=== PATIENT | female | born 1940 | race Caucasian/White ===

== ENCOUNTER 2017-11-29 10:04 | Day surgery (SDC) | payer MEDICARE, OTHER ==
[2017-11-24 10:56] LABS: BASOPHILS # (AUTO) 0.1 X10'3 (0-0.2); BASOPHILS % (AUTO) 0.8 % (0-1); EOSINOPHILS # (AUTO) 0.7 X10'3 (0-0.9); EOSINOPHILS % (AUTO) 7.5 % (0-6); HEMATOCRIT 40.2 % (35.0-45.0); HEMOGLOBIN 13.4 g/dl (12.0-16.0); LYMPHOCYTES # (AUTO) 1.9 X10'3 (1.1-4.8); LYMPHOCYTES % (AUTO) 20.5 % (21-51); MEAN CORPUSCULAR HEMOGLOBIN 32.2 PG (27.0-31.0); MEAN CORPUSCULAR HGB CONC 33.4 % (33.0-36.5); MEAN CORPUSCULAR VOLUME 96.6 FL (78-98); MEAN PLATELET VOLUME 9.1 FL (7.4-10.4); MONOCYTES # (AUTO) 0.7 X10'3 (0-0.9); MONOCYTES % (AUTO) 7.7 % (2-12); NEUTROPHILS # (AUTO) 5.9 X10'3 (1.8-7.7); NEUTROPHILS % (AUTO) 63.5 % (42-75); PLATELET COUNT 368 X10'3 (140-440); RED BLOOD COUNT 4.16 X10'6 (4.20-5.60); RED CELL DISTRIBUTION WIDTH 13.8 % (11.5-14.5); WHITE BLOOD COUNT 9.3 X10'3 (4.5-11.0)
[2017-11-24 11:06] LABS: ANION GAP 12 (8-16); BLOOD UREA NITROGEN 24 MG/DL (7-18); BUN/CREATININE RATIO 21.8 (6.6-38.0); CALCIUM 9.4 MG/DL (8.5-10.1); CHLORIDE 102 MMOL/L (99-107); GLUCOSE 92 MG/DL (70-104); POTASSIUM 3.5 MMOL/L (3.5-5.1); SODIUM 143 MMOL/L (135-145); TOTAL CARBON DIOXIDE 28.8 MMOL/L (24-32); eGFR 48 ML/MIN
[2017-11-24 11:10] LABS: INR 1.1 INR; PARTIAL THROMBOPLASTIN TIME 29 SECONDS (22-32)
[~2017-11-29] VITALS: Ht 157.5 cm; Wt 81.1 kg
[2017-11-29] VITALS (11 sets, daily range): BP systolic 95–125; BP diastolic 53–78
[2017-11-29] MEDS ORDERED: VITA1CAP PO (11:10)
[2017-11-29] MEDS ORDERED: UBID100C16 PO (11:10)
[2017-11-29] MEDS ORDERED: NIA500ERT PO (11:10)
[2017-11-29] MEDS ORDERED: DILT120T3 PO (11:10)
[2017-11-29] MEDS ORDERED: GEMF600T4 PO (11:10)
[2017-11-29] MEDS ORDERED: DILT120C19 PO (11:10)
[2017-11-29] MEDS ORDERED: FURO-150 PO (11:10)
[2017-11-29] MEDS ORDERED: CRAN300T PO (11:10)
[2017-11-29] MEDS ORDERED: LOSA25TA96 PO (11:10)
[2017-11-29] MEDS ORDERED: MULT1TAB74 PO (11:10)
[2017-11-29] MEDS ORDERED: OMEG1CAP2 PO (11:10)
[2017-11-29] MEDS ORDERED: GLUC15006 PO (11:10)
[2017-11-29] MEDS ORDERED: APIX5TAB3 PO (11:10)
[2017-11-29] MEDS ORDERED: MELA3TAB PO (11:10)
[2017-11-29] MEDS ORDERED: CHOL10002 PO (11:10)
[2017-11-29] MEDS ORDERED: METF-516 PO (11:10)
[2017-11-29] MEDS ORDERED: AMIO200T40 PO (11:10)
[2017-11-29] MEDS ORDERED: CINN1CAP PO (11:10)
[2017-11-29] MEDS ORDERED: GLIP5TAB13 PO (11:10)
[2017-11-29] MEDS ORDERED: MIDAZolam 5mg/ml 2ml vial IV ONE (11:20)
[2017-11-29] MEDS ORDERED: normal saline 1000ml 1,000 ML IV SCH (11:20)
[2017-11-29] MEDS ORDERED: fentaNYL/PF 50MCG/1 ML 2ML syringe IV ONE (11:20)
== END 2017-11-29 14:45 | disposition home or self-care (01) ==
LOC: SSTAY O 10:04
PROVIDERS: ATTEND Internal Medicine Interventional Cardiology
DX: I48.91 Unspecified atrial fibrillation (principal); E11.9 Type 2 diabetes mellitus without complications; I10 Essential (primary) hypertension; I45.81 Long QT syndrome; E78.5 Hyperlipidemia, unspecified; J45.998 Other asthma; Z79.01 Long term (current) use of anticoagulants; Z90.89 Acquired absence of other organs; Z90.710 Acquired absence of both cervix and uterus; Z79.84 Long term (current) use of oral hypoglycemic drugs; Z98.890 Other specified postprocedural states; Z79.899 Other long term (current) drug therapy; Z82.49 Family history of ischemic heart disease and other diseases of the circulatory system
CPT/HCPCS: 36415; 80048; 85025; 85610; 85730; 92960; 93005; J2250; J3010; J7030

== ENCOUNTER 2019-09-20 08:07 | Outpatient (CLI) | payer MEDICARE, OTHER ==
[~2019-09-20 08:07] MED LIST: AMIO200T61 PO; APIX5TAB3 PO; CHOL10002 PO; CINN1CAP PO; CRAN300T PO; DILT120C19 PO; DILT120T3 PO; FURO-150 PO; GEMF600T89 PO; GLIP5TAB13 PO; GLUC15006 PO; LOSA25TA96 PO; MELA3TAB39 PO; METF-516 PO; MULT-620 PO; NIA500ERT PO; OMEG1CAP2 PO; UBID100C16 PO; VITA1CAP PO
== END 2019-09-20 23:59 | disposition home or self-care (01) ==
LOC: VAS 08:07
PROVIDERS: ATTEND Nurse Practitioner Family
DX: I70.0 Atherosclerosis of aorta (principal); I70.8 Atherosclerosis of other arteries
CPT/HCPCS: 93978